=== PATIENT | male | born 1950 | race Caucasian/White ===

== ENCOUNTER 2016-04-12 22:45 | Observation (INO) | payer OTHER ==
[~2016-04-12] VITALS: Ht 182.9 cm; Wt 126.8 kg
--- NOTE | 2016-04-12 23:46 | DIAGNOSTIC IMAGING REPORT ---
PROCEDURE: CT HEAD WITHOUT CONTRAST INDICATION: Altered mental status, initial encounter TECHNIQUE: Noncontrast axial images with sagittal and coronal reformations. COMPARISON: Head CT 07/01/2014 FINDINGS: Mild motion artifacts. Mild cortical atrophy and minor white matter chronic ischemic changes. Normal ventricular system. No acute CVA, hemorrhage, mass or midline shift. Mastoids and visualized sinuses are clear. IMPRESSION: 1. No acute intracranial abnormality 2. Mild cortical atrophy with minor white matter chronic ischemic changes 3. Findings discussed with Dr. Laguna at 11:[address] Time
--- NOTE | 2016-04-12 23:46 | DIAGNOSTIC IMAGING REPORT ---
PROCEDURE: CT HEAD WITHOUT CONTRAST INDICATION: Altered mental status, initial encounter TECHNIQUE: Noncontrast axial images with sagittal and coronal reformations. COMPARISON: Head CT 07/01/2014 FINDINGS: Mild motion artifacts. Mild cortical atrophy and minor white matter chronic ischemic changes. Normal ventricular system. No acute CVA, hemorrhage, mass or midline shift. Mastoids and visualized sinuses are clear. IMPRESSION: 1. No acute intracranial abnormality 2. Mild cortical atrophy with minor white matter chronic ischemic changes 3. Findings discussed with Dr. Laguna at 11:16 p.m.[facility] Time
--- NOTE | 2016-04-13 00:49 | ED ORDER SUMMARY ---
..... Patient: MARIO GIRARD OrderSheet [facility] VisitID: [id number] [place] [address] 65y, M Registration Date/Time: 04/12/2016 ORDER SHEET Weight: 126 kg (measured) Allergies: Possible Shellfish GENERAL ORDERS: CT Head wo Cont Urgent (23:10 04/12/2016 OSnell per protocol) (23:16 RFay) Chest 1V Urgent (23:12 04/12/2016 Crista YUEN) (Ack 23:24 OSnell) (23:50 RFay) Business Risk Analyst (Continuous) (23:12 04/12/2016 Crista YUEN) (23:20 ABugansky R.N.) (Ack 23:23 OSnell) (23:23 OSnell) Cardiac Panel Stat (23:13 04/12/2016 Crista YUEN) (23:20 ABugansky R.N.) (Ack 23:24 OSnell) BNP Urgent (23:13 04/12/2016 Crista YUEN) (23:20 ABugansky R.N.) (Ack 23:23 OSnell) UA-Culture if indicated Urgent (23:13 04/12/2016 Crista YUEN) (Ack 23:23 OSnell) PT with INR Urgent (23:13 04/12/2016 Crista YUEN) (23:20 ABugansky R.N.) (Ack 23:23 OSnell) Urine Drug Screen Urgent (23:13 04/12/2016 Crista YUEN) (Ack 23:24 OSnell) Ethyl Alcohol Urgent (23:13 04/12/2016 Crista YUEN) (23:20 ABugansky R.N.) (Ack 23:24 OSnell) TSH Urgent (23:13 04/12/2016 Crista YUEN) (23:20 ABugansky R.N.) (Ack 23:24 OSnell) Oxygen (2 L/min) (NC) (23:13 04/12/2016 Crista YUEN) (23:20 ABugansky R.N.) (Ack 23:23 OSnell) (23:23 OSnell) Pulse oximeter (23:13 04/12/2016 Crista YUEN) (23:20 ABugansky R.NYoan) (Ack 23:23 Tona) (23:23 Tona) EKG - ER Stat (23:13 04/12/2016 Crista YUEN) (23:20 Felton Salcedo) (23:23 Tona) MEDICATION ORDERS: Aspirin PO 325 mg (Do not crush or chew, NOW) (23:12 04/12/2016 Crista YUEN) (23:27 Felton Milan.Ana.) IV FLUIDS: IV NS : initial bolus 1000 mL (1000 mL/hr), then none - (NOW) (23:12 04/12/2016 Crista YUEN) (23:27 Felton R.N.) Labetalol IV 10 mg (HIGH ALERT MEDICATION, NOW) (23:13 04/12/2016 Crista YUEN) (23:27 Felton R.N.) ORDER SHEET NOTES: [Electronically signed by Alicia Hua R.N. (01:54 04/13/2016)] [Electronically signed by Keira Laguna MD (08:52 04/17/2016)] [Electronically locked/signed by Alicia Hua R.N. (01:54 04/13/2016)]
--- NOTE | 2016-04-13 00:49 | ED NURSING NOTES ---
Clinical Report - Nurses [facility] [address] [place] [address] 04/12/2016 22:50 Patient: MARIO GIRARD TRIAGE Triage time 22:56 Apr 12 2016. Acuity: LEVEL 2. Chief Complaint: IMPAIRED SPEECH. 23:01 04/12/16. Alert. No acute distress. SEPSIS SCREEN: Sepsis Screen. Negative (no infection suspected/documented). WYATT COMA SCORE: [place] Coma Scale: 15- eyes open spontaneously (4); best verbal response- oriented x 4 (5); best motor response- obeys commands (6). --23:01 Alicia Hua R.N. 22:56 04/12/16. BP: 196/79. HR: 105. RR: 18. O2 saturation: 90% on room air. Temp: 98.2 F. --23:01 Alicia Hua R.N. Weight: 126 kg measured. Height/Length: 72 inches Per Patient. BMI: 37.7. --23:01 Alicia Hua R.N. Medications Amitriptyline HCl 25mg, daily (HS). Testim gel. Voltaren-XR Oral. --22:59 Alicia Hua R.N. Medication/allergy information source: the patient. --23:01 Alicia Hua R.N. Allergies Possible Shellfish. --22:59 lAicia Hua R.N. History Arrived by private vehicle. Historian: patient and family. Accompanied by family. This started just prior to arrival. Patient was last known well (2129). Onset. (2129). ( 2129 tonight pt became confused didn't remember the ride home and having difficulty remembering date and no injury. pt has no facial drooping and some difficulty with speech). He has had altered mental status and difficulty with speech. Treatment DIRECTOR ELECTRICAL ENGINEERING: None. SOCIAL HX: Former smoker. No alcohol use or drug use. FALL RISK ASSESSMENT: Fall risk assessment completed. No fall risk identified. NUTRITIONAL RISK ASSESSMENT: The nutritional risk assessment revealed no deficiencies. FUNCTIONAL ASSESSMENT: Functional assessment: no impairments noted. LEARNING NEEDS ASSESSMENT: The learning needs assessment revealed no barriers. SKIN INTEGRITY ASSESSMENT: Skin integrity risk assessment completed. No skin integrity risk identified. --23: Alicia Hua R.N. PROBLEMS: Pneumothorax. Rib Fracture. Concussion. Abrasion(s). Contusion. Fall. Upper Extremity Fracture. Clavicle Fracture. Tetanus Status. Arrhythmia. Dyspnea. Pneumonia. Immunizations. Insomnia. Joint pain. --:59 Alicia Hua R.N. ADDITIONAL SURGERIES: Knee Surgery. Right shoulder surgery. --:59 Alicia Hua R.N. The following entry was struck by Keira Laguna MD, 23:14 Reason - duplicate <<STRICKEN ENTRY-- Shoulder Surgery. --23:13 Keira Laguna MD --END STRIKE>>. Interventions ID band on patient. To treatment room. --23: Alicia Hua R.N. PHYSICAL ASSESSMENT 23:03 04/12/16. Ambulatory to room. Patient gowned. GENERAL / NEURO / PSYCH: Awake. Alert. Appears in no acute distress. [place] Coma Scale: 15- eyes open spontaneously (4); best verbal response- oriented x 4 (5); best motor response- obeys commands (6). Altered mental status: confused, forgetful and disoriented to time. Slurred speech (difficulty speaking). Mood/affect normal. Moves all extremities equally. NIH Stroke Scale: score 1. Level of Consciousness: alert (0). LOC Questions: one (1). LOC Commands: both (0). Best gaze: normal (0). Visual field loss: none (0). Facial palsy: normal (0). Motor arm: no drift right arm (0) and no drift left arm (0). Motor leg: no drift right leg (0) and no drift left leg (0). Limb ataxia: none (0). Sensory loss: none (0). Aphasia: none (0). Dysarthria: normal (0). Extinction and inattention: none (0). HEENT: No facial asymmetry noted. Pupils equal, round and reactive to light. EOM intact. Pharynx within normal limits. RESPIRATORY: Breath sounds within normal limits. Respirations not labored. CVS: Normal sinus rhythm noted. Capillary refill less than 2 seconds. SKIN: Skin is intact, warm and dry. --23:03 Alicia Hua R.N. NURSING PROGRESS NOTES 23:04 04/12/16. The plan of care for this patient has been created. Monitoring of patient in place. Patient gowned. Head of bed elevated. Reassurance given. ( pt to ct and bs 93). Two patient identifiers checked. Call light placed in reach. Side rails up x 2. Bed placed in lowest position. Brakes of bed on. Patient ready for evaluation- ED physician notified. --23:04 Alicia Hua R.N. 23:17 04/12/2016 Site #1 started via IV in the left antecubital space with an 20g angiocath, with aseptic technique and good blood return; two attempts. Blood drawn: rainbow set. Labeled in the presence of the patient and sent to the lab. Saline lock flushed with 5 mL saline. --23:17 Alicia Hua R.N. 23:18 04/12/16. The patient is calm and resting quietly. ( pt able to answer all questions at this time). GENERAL / NEURO / PSYCH: Alert. Oriented X 4. Affect appears normal. HEENT: Pupils equal, round and reactive to light. RESPIRATORY: No respiratory distress. SKIN: Skin is warm and dry. --23:18 Alicia uHa R.N. 23:10. ( Accu Check 93 performed by tech shown to nurse and phys.). --23:22 Rica Ramey 23:27 04/12/2016 Started bag #1 1000 mL IV Fluids IV NS (Saline); at 1000 mL/hr over 1 hour(s) via site #1 --23:27 Alicia Hua R.N. 23:27 04/12/2016 Aspirin PO Tablets 325 mg given. Allergies verified and confirmed 5 rights. --23:27 Alicia Hua R.N. 23:27 04/12/2016 Labetalol IVP 10 mg given over 5 minute(s) via site #1. Allergies verified and confirmed 5 rights. IV patency established. IV site checked: no pain, redness, or swelling. IV flushed thoroughly pre- and post-medication administration. IVP given by RN. --23:27 Alicia Hua R.N. 23:34 04/12/16. The patient reports no complaints and he is calm and resting quietly. Overall patient status is improved- he states feels better. ( pt is unable to state who the next president is but is able to remember the month not the year which is an improvement. on arrival pt unable to remember month now can recall month). --23:34 Alicia Hua R.N. 23:31 04/12/16. BP: 173/83. HR: 101. RR: 18. O2 saturation: 96% on nasal cannula at 2 liters/minute. --23:34 Alicia Hua R.N. 00:05 04/13/16. The patient reports no complaints and he is calm and resting quietly. --00:05 Alicia Hua R.N. 00:03 04/13/16. BP: 158/91. HR: 88. RR: 18. O2 saturation: 98% on room air. Pain level now: 0/10. --00:05 Alicia Hua R.N. 00:30 04/13/16. The patient is calm and resting quietly. --00:30 Alicia Hua R.N. 00:29 04/13/16. BP: 151/73. HR: 85. RR: 18. O2 saturation: 100% on room air. --00:30 Alicia Hua R.N. 01:04/13/16. The patient reports no complaints and he is calm and resting quietly. Overall patient status is the same- he states feels the same. --01:06 Alicia Hua R.N. 01:04/13/16. BP: 154/87. HR: 85. RR: 18. O2 saturation: 95% on nasal cannula at 2 liters/minute. --01:06 Alicia Hua R.N. DISPOSITION / DISCHARGE 01:45 04/13/2016 IV Fluids IV NS Discontinued: bag #1 completed upon admission. Total amount infused: 1000ml mL. IV patency established. IV site checked: no pain, redness, or swelling. IV flushed thoroughly. --01:45 Alicia Hua R.N. Disposition: observation in Acute Care. Transported via stretcher by [facility] with IV. Report was given to a nurse via a phone call. Report included patient's care, treatment, medications, reviewed medication reconcilliation, and condition (including any recent changes or anticipated changes). All questions were answered. Report was acknowledged and care was transferred. (shanon langston). Patient's personal items; items were placed in belongings bag, given to the patient and transported with the patient. --01:46 Alicia Hua R.N. 01:05 04/13/16. BP: 154/87. HR: 85. RR: 18. O2 saturation: 95% on nasal cannula at 2 liters/minute. 00:29 04/13/16. BP: 151/73. HR: 85. RR: 18. O2 saturation: 100% on room air. 00:03 04/13/16. BP: 158/91. HR: 88. RR: 18. O2 saturation: 98% on room air. Pain level now: 0/10. 23:31 04/12/16. BP: 173/83. HR: 101. RR: 18. O2 saturation: 96% on nasal cannula at 2 liters/minute. 22:56 04/12/16. BP: 196/79. HR: 105. RR: 18. O2 saturation: 90% on room air. Temp: 98.2 F. --01:46 Alicia Hua R.N. Departure time: 01:54 Apr 13 2016. --01:54 Alicia Hua R.N. Locked/Released at 04/13/2016 1:54 by Alicia Hua R.N.
--- NOTE | 2016-04-13 00:49 | ED CLINICAL REPORT ---
Clinical Report - Physicians/Mid Levels [facility] [address] [place] [address] 04/12/2016 22:50 Patient: MARIO GIRARD Time Seen: 2255. Arrived- By private vehicle. Historian- patient and family. HISTORY OF PRESENT ILLNESS Chief Complaint: memory loss. This started about 1 hour ago and is still present. No weakness, numbness, tingling, visual disturbance or impaired swallowing. No recent fall. No impaired speech (Acute, short-term memory loss.). No difficulty walking. At its maximum deficit described as moderate. When seen in the E.D.,deficit described as moderate. No dizziness, altered mental status, seizure or blackouts. Usually is alert and oriented X3 and has normal mobility. Similar symptoms previously: None. Recent medical care: The patient was seen recently at another facility in a clinic. ( Dr. Neri is PCP.). REVIEW OF SYSTEMS No fever, headache, head injury, chest pain or cough. No sputum production, sore throat, abdominal pain, nausea or diarrhea. No black stools, difficulty with urination, skin rash, enlarged lymph nodes or joint pain. No vomiting, bloody stools or back pain. The patient has had difficulty breathing (since having pneumonia 2 weeks ago). All systems otherwise negative, except as recorded above. PAST HISTORY Problems: Pneumothorax. Rib Fracture. Concussion. Clavicle Fracture. Tetanus Status. Arrhythmia. Dyspnea. Immunizations. Insomnia. Joint pain. Additional Surgeries: Knee Surgery. Right shoulder surgery. Medications: Amitriptyline HCl 25mg, daily (HS). Testim gel. Voltaren-XR Oral. Allergies: Possible Shellfish. SOCIAL HISTORY Former smoker. No alcohol use or drug use. ADDITIONAL NOTES The nursing notes have been reviewed. PHYSICAL EXAM Vital Signs: 04/12/2016 22:56 BP: 196/79. HR: 105. RR: 18. O2 saturation: 90%. Temp: 98.2 F. Have been reviewed. Appearance: Alert. No acute distress. Head: Head atraumatic. Eyes: Pupils equal, round and reactive to light. ENT: Normal ENT inspection. Airway intact. Neck: Normal inspection. CVS: Normal heart rate and rhythm. Heart sounds normal. Pulses normal. Respiratory: No respiratory distress. Breath sounds normal. Abdomen: Soft and nontender. Back: Normal inspection. Skin: Skin warm and dry. Normal skin color. No rash. Normal skin turgor. Extremities: Extremities exhibit normal ROM. No lower extremity edema. Neuro: Alert. Mood/affect normal. Speech normal. Cranial nerves normal (as tested). No cerebellar findings. No motor deficit. No sensory deficit. LABS, X-RAYS, AND EKG CT Head: Normal study. No acute changes. No bony abnormalities, no hemorrhage, no intracranial mass, no midline shift and no hydrocephalus. No atrophy. Head CT performed without contrast. The study was independently viewed by me, interpreted by the radiologist and contemporaneously by me and discussed with the radiologist. Prior studies were not available for comparison. Laboratory Tests: CBC w Diff: (SUE: 04/12/2016 23:16) ( [facility] 04/12/2016 23:29) Final results Test Result Flag Units (Reference) WHITE BLOOD COUNT 8.1 K/uL (4.5-11.5) RED BLOOD COUNT 5.23 M/uL (4.50-5.90) HEMOGLOBIN 17.8 H gm/dL (13.5-17.5) HEMATOCRIT 52.4 % (41.0-53.0) MEAN CELL VOLUME 100 fL (80-100) MEAN CORPUSCULAR HGB 34 pg (26-34) MEAN CORPUSCULAR HGB CONC 34 g/dL (31-37) RED CELL DISTRIBUTION WIDTH 13.3 % (11.6-14.8) PLATELET COUNT 136 L K/uL (150-400) NEUTROPHIL % 66.3 % (50-75) LYMPH % 23.6 L % (25-40) MONO % 5.5 % (3-14) EOSINOPHIL % 3.3 % (0-4) BASOPHIL % 1.3 % (0-2) PT with INR: (SUE: 04/12/2016 23:16) ( [facility] 04/12/2016 23:46) Final results Test Result Flag Units (Reference) INR 1.0 (0.8-1.2) Low Intensity Therapy: INR 1.5-2.0 PT range 18.5-23.1Mod.Intensity Therapy: INR 2.0-3.0 PT range 23.1-31.5High Intensity Therapy: INR 2.5-3.5 PT range 27.4-35.5High Intensity Therapy 2: INR 3.0-4.0 PT range 31.5-39.3 BNP: (SUE: 04/12/2016 23:16) ( [facility] 04/12/2016 23:50) Final results Test Result Flag Units (Reference) B-TYPE NATRIURETIC PEPTIDE < 5.0 L pg/ml (5-100) Ethyl Alcohol: (SUE: 04/12/2016 23:16) ( [facility] 04/13/2016 00:00) Final results Test Result Flag Units (Reference) ETHYL ALCOHOL <3 L mg/dL (3-10) THYROID STIMULATING HORMONE 3.032 uIU/mL (0.30-3.74) CHEM 13 PANEL: (SUE: 04/12/2016 23:16) ( [facility] 04/13/2016 00:03) Final results Test Result Flag Units (Reference) GLUCOSE 111 H mg/dL (70-110) BUN 21 H mg/dL (7-18) CREATININE 1.3 mg/dL (0.6-1.3) Estimated GFR 58.52 mL/min Estimated GFR- >60 mL/min Note: Persistent reduction over 3 months in eGFR<60 mL/min/1.73 m2 defines CKD. Patients with eGFR values>=60 mL/min/1.73 m2 may also have CKD if evidence ofpersistent proteinuria. Additional information may be foundat www.kidney.org. SODIUM 140 mmol/L (136-145) POTASSIUM 4.7 mmol/L (3.5-5.1) CHLORIDE 105 mmol/L (98-107) CARBON DIOXIDE 26 mmol/L (21-32) CALCIUM 9.1 mg/dL (8.5-10.1) TOTAL PROTEIN 7.5 g/dL (6.4-8.2) ALBUMIN 3.9 g/dL (3.3-5.0) BILIRUBIN, TOTAL 0.6 mg/dL (0.0-1.0) ALKALINE PHOSPHATASE 141 H U/L (46-116) AST (SGOT) 52 H U/L (15-37) ALT (SGPT) 47 U/L (12-78) MAGNESIUM 2.0 mg/dL (1.8-2.4) CPK 436 H U/L (24-260) TROPONIN I 0.05 ng/mL (0.00-1.5) TROPONIN REFERENCE RANGE:<0.1 NEGATIVE0.1-1.5 INDETERMINANT>1.5 POSITIVE CK-MB 10.6 H ng/mL (0.5-3.2) %CKMB 2.4 % (0.0-4.0) . Pulse Oximetry: 04/12/2016 22:56 O2 saturation: 90%. (FIO2 - room air). Interpretation: normal. PROGRESS AND PROCEDURES Course of Care: PT was worked up for his acute, short-term memory loss, with progressive amnesia. Work-up was negative at this time, including a normal head CT. I did d/w pt and that at this time, I feel the best plan is to observe the pt in the hospital for possible stroke, with consideration of MRI, echo and carotid studies tomorrow. Patient and spouse counseled in person several times regarding the patient's condition, test results, diagnosis and need for additional testing and admission. Concerns were addressed. Old medical records reviewed. Disposition: Admitted to Acute Care. Condition: stable and serious. CLINICAL IMPRESSION Acute memory loss with progressive amnesia. (Electronically signed by Keira Laguna MD 04/17/2016 8:52)
--- NOTE | 2016-04-13 00:49 | ED ORDER SUMMARY ---
..... Patient: MARIO GIRARD OrderSheet [facility] VisitID: [id number] [place] [address] 65y, M Registration Date/Time: 04/12/2016 ORDER SHEET Weight: 126 kg (measured) Allergies: Possible Shellfish GENERAL ORDERS: CT Head wo Cont Urgent (23:10 04/12/2016 OSnell per protocol) (23:16 RFay) Chest 1V Urgent (23:12 04/12/2016 Crista YUEN) (Ack 23:24 OSnell) (23:50 RFay) Japanese Interpreter (Continuous) (23:12 04/12/2016 Crista YUEN) (23:20 ABugansky R.N.) (Ack 23:23 OSnell) (23:23 OSnell) Cardiac Panel Stat (23:13 04/12/2016 Crista YUEN) (23:20 ABugansky R.N.) (Ack 23:24 OSnell) BNP Urgent (23:13 04/12/2016 Crista YUEN) (23:20 ABugansky R.N.) (Ack 23:23 OSnell) UA-Culture if indicated Urgent (23:13 04/12/2016 Crista YUEN) (Ack 23:23 OSnell) PT with INR Urgent (23:13 04/12/2016 Crista YUEN) (23:20 ABugansky R.N.) (Ack 23:23 OSnell) Urine Drug Screen Urgent (23:13 04/12/2016 Crista YUEN) (Ack 23:24 OSnell) Ethyl Alcohol Urgent (23:13 04/12/2016 Crista YUEN) (23:20 ABugansky R.N.) (Ack 23:24 OSnell) TSH Urgent (23:13 04/12/2016 Crista YUEN) (23:20 ABugansky R.N.) (Ack 23:24 OSnell) Oxygen (2 L/min) (NC) (23:13 04/12/2016 Crista YUEN) (23:20 ABugansky R.N.) (Ack 23:23 OSnell) (23:23 OSnell) Pulse oximeter (23:13 04/12/2016 Crista YUEN) (23:20 ABugansky R.NYoan) (Ack 23:23 Tona) (23:23 Tona) EKG - ER Stat (23:13 04/12/2016 Crista YUEN) (23:20 Felton Salcedo) (23:23 Tona) MEDICATION ORDERS: Aspirin PO 325 mg (Do not crush or chew, NOW) (23:12 04/12/2016 Crista YUEN) (23:27 Felton Milan.Ana.) IV FLUIDS: IV NS : initial bolus 1000 mL (1000 mL/hr), then none - (NOW) (23:12 04/12/2016 Crista YUEN) (23:27 Felton R.N.) Labetalol IV 10 mg (HIGH ALERT MEDICATION, NOW) (23:13 04/12/2016 Crista YUEN) (23:27 Felton R.N.) ORDER SHEET NOTES: [Electronically signed by Alicia Hua R.N. (01:54 04/13/2016)] [Electronically signed by Keira Laguna MD (08:52 04/17/2016)] [Electronically locked/signed by Alicia Hua R.N. (01:54 04/13/2016)]
--- NOTE | 2016-04-13 00:49 | ED NURSING NOTES ---
Clinical Report - Nurses [facility] [address] [place] [address] 04/12/2016 22:50 Patient: MARIO GIRARD TRIAGE Triage time 22:56 Apr 12 2016. Acuity: LEVEL 2. Chief Complaint: IMPAIRED SPEECH. 23:01 04/12/16. Alert. No acute distress. SEPSIS SCREEN: Sepsis Screen. Negative (no infection suspected/documented). WYATT COMA SCORE: Marshall Coma Scale: 15- eyes open spontaneously (4); best verbal response- oriented x 4 (5); best motor response- obeys commands (6). --23:01 Alicia Hua R.N. 22:56 04/12/16. BP: 196/79. HR: 105. RR: 18. O2 saturation: 90% on room air. Temp: 98.2 F. --23:01 Alicia Hua R.N. Weight: 126 kg measured. Height/Length: 72 inches Per Patient. BMI: 37.7. --23:01 Alicia Hua R.N. Medications Amitriptyline HCl 25mg, daily (HS). Testim gel. Voltaren-XR Oral. --22:59 Alicia Hua R.N. Medication/allergy information source: the patient. --23:01 Alicia Hua R.N. Allergies Possible Shellfish. --22:59 Alicia Hua R.N. History Arrived by private vehicle. Historian: patient and family. Accompanied by family. This started just prior to arrival. Patient was last known well (2129). Onset. (2129). ( 2129 tonight pt became confused didn't remember the ride home and having difficulty remembering date and no injury. pt has no facial drooping and some difficulty with speech). He has had altered mental status and difficulty with speech. Treatment COMMERCIAL PROPERTY MANAGER: None. SOCIAL HX: Former smoker. No alcohol use or drug use. FALL RISK ASSESSMENT: Fall risk assessment completed. No fall risk identified. NUTRITIONAL RISK ASSESSMENT: The nutritional risk assessment revealed no deficiencies. FUNCTIONAL ASSESSMENT: Functional assessment: no impairments noted. LEARNING NEEDS ASSESSMENT: The learning needs assessment revealed no barriers. SKIN INTEGRITY ASSESSMENT: Skin integrity risk assessment completed. No skin integrity risk identified. --23: Alicia Hua R.N. PROBLEMS: Pneumothorax. Rib Fracture. Concussion. Abrasion(s). Contusion. Fall. Upper Extremity Fracture. Clavicle Fracture. Tetanus Status. Arrhythmia. Dyspnea. Pneumonia. Immunizations. Insomnia. Joint pain. --:59 Alicia Hua R.N. ADDITIONAL SURGERIES: Knee Surgery. Right shoulder surgery. --:59 Alicia Hua R.N. The following entry was struck by Keira Laguna MD, 23:14 Reason - duplicate <<STRICKEN ENTRY-- Shoulder Surgery. --23:13 Keira Laguna MD --END STRIKE>>. Interventions ID band on patient. To treatment room. --23: Alicia Hua R.N. PHYSICAL ASSESSMENT 23:03 04/12/16. Ambulatory to room. Patient gowned. GENERAL / NEURO / PSYCH: Awake. Alert. Appears in no acute distress. Marshall Coma Scale: 15- eyes open spontaneously (4); best verbal response- oriented x 4 (5); best motor response- obeys commands (6). Altered mental status: confused, forgetful and disoriented to time. Slurred speech (difficulty speaking). Mood/affect normal. Moves all extremities equally. NIH Stroke Scale: score 1. Level of Consciousness: alert (0). LOC Questions: one (1). LOC Commands: both (0). Best gaze: normal (0). Visual field loss: none (0). Facial palsy: normal (0). Motor arm: no drift right arm (0) and no drift left arm (0). Motor leg: no drift right leg (0) and no drift left leg (0). Limb ataxia: none (0). Sensory loss: none (0). Aphasia: none (0). Dysarthria: normal (0). Extinction and inattention: none (0). HEENT: No facial asymmetry noted. Pupils equal, round and reactive to light. EOM intact. Pharynx within normal limits. RESPIRATORY: Breath sounds within normal limits. Respirations not labored. CVS: Normal sinus rhythm noted. Capillary refill less than 2 seconds. SKIN: Skin is intact, warm and dry. --23:03 Alicia Hua R.N. NURSING PROGRESS NOTES 23:04 04/12/16. The plan of care for this patient has been created. Monitoring of patient in place. Patient gowned. Head of bed elevated. Reassurance given. ( pt to ct and bs 93). Two patient identifiers checked. Call light placed in reach. Side rails up x 2. Bed placed in lowest position. Brakes of bed on. Patient ready for evaluation- ED physician notified. --23:04 Alicia Hua R.N. 23:17 04/12/2016 Site #1 started via IV in the left antecubital space with an 20g angiocath, with aseptic technique and good blood return; two attempts. Blood drawn: rainbow set. Labeled in the presence of the patient and sent to the lab. Saline lock flushed with 5 mL saline. --23:17 Alicia Hua R.N. 23:18 04/12/16. The patient is calm and resting quietly. ( pt able to answer all questions at this time). GENERAL / NEURO / PSYCH: Alert. Oriented X 4. Affect appears normal. HEENT: Pupils equal, round and reactive to light. RESPIRATORY: No respiratory distress. SKIN: Skin is warm and dry. --23:18 Alicia Hua R.N. 23:10. ( Accu Check 93 performed by tech shown to nurse and phys.). --23:22 Rica Ramey 23:27 04/12/2016 Started bag #1 1000 mL IV Fluids IV NS (Saline); at 1000 mL/hr over 1 hour(s) via site #1 --23:27 Alicia Hua R.N. 23:27 04/12/2016 Aspirin PO Tablets 325 mg given. Allergies verified and confirmed 5 rights. --23:27 Alicia Hua R.N. 23:27 04/12/2016 Labetalol IVP 10 mg given over 5 minute(s) via site #1. Allergies verified and confirmed 5 rights. IV patency established. IV site checked: no pain, redness, or swelling. IV flushed thoroughly pre- and post-medication administration. IVP given by RN. --23:27 Alicia Hua R.N. 23:34 04/12/16. The patient reports no complaints and he is calm and resting quietly. Overall patient status is improved- he states feels better. ( pt is unable to state who the next president is but is able to remember the month not the year which is an improvement. on arrival pt unable to remember month now can recall month). --23:34 Alicia Hua R.N. 23:31 04/12/16. BP: 173/83. HR: 101. RR: 18. O2 saturation: 96% on nasal cannula at 2 liters/minute. --23:34 Alicia Hua R.N. 00:05 04/13/16. The patient reports no complaints and he is calm and resting quietly. --00:05 Alicia Hua R.N. 00:03 04/13/16. BP: 158/91. HR: 88. RR: 18. O2 saturation: 98% on room air. Pain level now: 0/10. --00:05 Alicia Hua R.N. 00:30 04/13/16. The patient is calm and resting quietly. --00:30 Alicia Hua R.N. 00:29 04/13/16. BP: 151/73. HR: 85. RR: 18. O2 saturation: 100% on room air. --00:30 Alicia Hua R.N. 01:04/13/16. The patient reports no complaints and he is calm and resting quietly. Overall patient status is the same- he states feels the same. --01:06 Alicia Hua R.N. 01:04/13/16. BP: 154/87. HR: 85. RR: 18. O2 saturation: 95% on nasal cannula at 2 liters/minute. --01:06 Alicia Hua R.N. DISPOSITION / DISCHARGE 01:45 04/13/2016 IV Fluids IV NS Discontinued: bag #1 completed upon admission. Total amount infused: 1000ml mL. IV patency established. IV site checked: no pain, redness, or swelling. IV flushed thoroughly. --01:45 Alicia Hua R.N. Disposition: observation in Acute Care. Transported via stretcher by [facility] with IV. Report was given to a nurse via a phone call. Report included patient's care, treatment, medications, reviewed medication reconcilliation, and condition (including any recent changes or anticipated changes). All questions were answered. Report was acknowledged and care was transferred. (shanon langston). Patient's personal items; items were placed in belongings bag, given to the patient and transported with the patient. --01:46 Alicia Hua R.N. 01:05 04/13/16. BP: 154/87. HR: 85. RR: 18. O2 saturation: 95% on nasal cannula at 2 liters/minute. 00:29 04/13/16. BP: 151/73. HR: 85. RR: 18. O2 saturation: 100% on room air. 00:03 04/13/16. BP: 158/91. HR: 88. RR: 18. O2 saturation: 98% on room air. Pain level now: 0/10. 23:31 04/12/16. BP: 173/83. HR: 101. RR: 18. O2 saturation: 96% on nasal cannula at 2 liters/minute. 22:56 04/12/16. BP: 196/79. HR: 105. RR: 18. O2 saturation: 90% on room air. Temp: 98.2 F. --01:46 Alicia Hua R.N. Departure time: 01:54 Apr 13 2016. --01:54 Alicia Hua R.N. Locked/Released at 04/13/2016 1:54 by Alicia Hua R.N.
[2016-04-13 02:26] VITALS: BP 169/93
--- NOTE | 2016-04-13 02:59 | HISTORY AND PHYSICAL ---
ADMITTED: 04/13/2016 CHIEF COMPLAINT: 1. Memory loss HISTORY OF PRESENT ILLNESS: A 65-year-old male in good health until a few hours prior to admission when he was noted by his to have sudden onset of memory loss at home. She and the patient had been babysitting the grandchildren. They drove home following babysitting, which was uneventful. The patient was driving and apparently drove without difficulty, but on arriving home, he seemed confused about where things were at home and did not recall putting things where they had been or parking vehicles where they had been. He also did not remember driving home from babysitting, and on further questioning, he also seemed to be confused about the date and did not recall some other events, such as recent presidential election. She therefore drove him to the emergency department for evaluation. She denies prior memory problems for him, except once when he was admitted with sepsis and was very ill with high fever and became very confused, that was some years ago. MEDICAL/SURGICAL HISTORY: Shoulder surgery in 2004. Knee surgery, date unknown. Back surgery, date unknown, for spinal stenosis. Past hospitalizations include hospitalization for sepsis in 2004 and for a fall from a roof with broken ribs and punctured lung in 2014. Past medical history is remarkable for pneumonia approximately 6 weeks prior to admission, blood infection in 2004, fall in 2014 with rib fractures. He also had a concussion at the time of the fall. He has had chronic joint pain, chronic back pain with spinal stenosis and paresthesias in his feet, worked up by Neurology, initially suspected to be due to diabetes, but diabetes has been ruled out multiple times. Preventive care: Colonoscopy last done approximately 5 years ago. The patient has had recent vision and dental testing and has yearly physicals with Dr. Neri. 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 Preventive care also includes pneumonia and flu vaccines done this fall. MEDICATIONS: 1. Amitriptyline 25 mg p.o. at bedtime. 2. Losartan 50 mg p.o. daily. 3. Vicodin ------- 1 p.o. 3-4 times per day. 4. Cephalexin 500 mg p.o. q.i.d. 5. Diclofenac 75 mg p.o. daily (the patient does not recall any of his medications thus history is obtained from his ). ALLERGIES: 1. SHELLFISH. 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 Smoking: None, quit some years ago, after approximately 20 years of smoking, now chews tobacco. Alcohol: None x30 years. Drug use: None. Caffeine: Approximately 5 cups of coffee per day. FAMILY HISTORY: Father at age 65 of a heart problem shortly after a valve surgery. Mother at age 93. One sibling is a urban anthropologist and had lung disease. Three children are healthy. REVIEW OF SYSTEMS: Fatigue x1 year, worse in the last 3 months according to his , the patient does not recall this. Chronic back and joint pain for which he takes pain medications and anti-inflammatories. Cough with shortness of breath at times, including recently a history of pneumonia 6 months ago with wheezing and phlegm production. The patient also gives positive history for hypertension, pain in muscles with walking, shortness of breath with exertion, joint stiffness, joint pain and tingling sensation. Otherwise, review of systems for general, skin, eyes, ears, nose, mouth, throat, lungs, heart circulation, urinary, stomach, intestines, musculoskeletal, neurologic, lymphatic, endocrine, psychological and genital is negative, with the exception of the patient also adding that he does have loss of interest in enjoyable events and does have difficulty with erections. PHYSICAL EXAMINATION: VITAL SIGNS: Blood pressure 196/79, heart rate 105, respirations 18, SaO2 90% on room air, temperature 98.2. HEENT: Clear. NECK: Supple without adenopathy or thyromegaly. CHEST: Clear to auscultation and percussion. HEART: Regular rate and rhythm without murmur. ABDOMEN: Positive bowel sounds. Soft, nontender, without hepatosplenomegaly or masses. BACK: Straight without CVA tenderness. EXTREMITIES: Without cyanosis, clubbing, or edema. SKIN: Reveals infection of the right great toe with some purulence at the toe nail margin and some erythema proximal to the toenail. This is nontender at this time. The patient reports it was tender before starting antibiotics. reports he has been on antibiotics for 2 days (cephalexin) and that it looks considerably better than it did. NEUROLOGIC: Reveals the patient is alert and oriented to self and to the month, but not the year or the date. Mini mental status test was done. The patient scored 25/30 points. He was not able to remember any of 3 named objects after a period of distraction , although he was able to repeat them immediately. He was oriented to place. GENITAL AND RECTAL: Deferred. LAB/IMAGING: Sodium 140, potassium 4.7, chloride 105, bicarbonate 26. Total bilirubin 0.6, alkaline phosphatase 141. AST 52, ALT 47, magnesium 2.0. CPK 436, CK-MB 10.6. Ethyl alcohol less than 3, thyroid stimulating hormone 3.032. WBC 8.1, hemoglobin 17.8 , hematocrit 52.4, platelet count 136. INR 1.0. BNP less than 5, glucose 111, BUN 21, creatinine 1.3. Ethyl alcohol less than 3. TSH 3.032. Magnesium 2.0. CPK 436, troponin 0.05, CK-MB 10.6%, CK-MB 2.4. One-view chest x-ray was obtained, which shows some patchiness. Two view films will be obtained to rule out infiltrate. CT of the head was obtained, which shows no acute change. EKG shows normal sinus rhythm. IMPRESSION: 1. Cerebrovascular accident probable with acute memory loss. Rule out transient global amnesia, rule out infection causing memory loss or medication overdose causing memory loss. 2. Cellulitis, right great toe. 3. Hypertension. 4. Chronic pain, on chronic Vicodin. PLAN: Admit to [facility] for observation. We will obtain an MRI of the head, carotid ultrasound, and repeat chest x-ray, IV antibiotics will be given for cellulitis, and the patient will be monitored off narcotics for any improvement in memory.
--- NOTE | 2016-04-13 03:05 | Progress Note ---
Subjective General CXR shows RML infiltrate. Will add zithromax to previously prescribed cephalosporin for pneumonia. Assessment and Plan Problem List 1. Pneumonia Plan zithromax
--- NOTE | 2016-04-13 03:05 | Progress Note ---
Subjective General CXR shows RML infiltrate. Will add zithromax to previously prescribed cephalosporin for pneumonia. Assessment and Plan Problem List 1. Pneumonia Plan zithromax
[2016-04-13 06:25] VITALS: BP 144/96
--- NOTE | 2016-04-13 07:52 | DIAGNOSTIC IMAGING REPORT ---
PROCEDURE: XR CHEST 1 VIEW INDICATION: SHORTNESS OF BREATH TECHNIQUE: Portable AP view (234 5 hours). COMPARISON: Compared to chest x-ray is dating to 05/06/2008 within the most recent chest x-ray on 07/02/2014. Comparison is also made to CT thorax on 07/01/2014. FINDINGS: There are mild chronic interstitial changes in the lungs. Lungs are otherwise clear. Heart and mediastinum are normal. There are old left rib fractures with mild deformity of the left hemithorax. There is an old ununited midshaft left clavicle fracture. IMPRESSION: 1. Mild chronic interstitial changes compatible with interstitial fibrosis (e.g., UIP, DIP). 2. Multiple old left rib fractures. 3. Old ununited left clavicle fracture.
--- NOTE | 2016-04-13 07:53 | DIAGNOSTIC IMAGING REPORT ---
PROCEDURE: XR CHEST 2 VIEW INDICATION: Shortness of breath. TECHNIQUE: PA and lateral views. COMPARISON: Compared to chest x-ray on 04/12/2016 and prior chest x-ray on 07/02/2014. FINDINGS: There are mild chronic interstitial changes in the lungs. There are multiple old healed left rib fractures with mild deformity of the left hemithorax. Heart and mediastinum are normal. There are old left rib fractures with mild deformity of the left hemithorax, and mild chronic pleural thickening. There is an old ununited left clavicle fracture. There are mild degenerative changes of the thoracic spine. IMPRESSION: 1. Mild chronic interstitial changes of the thorax consistent with interstitial fibrosis (e.g., UIP, DIP, sarcoid). 2. Multiple old left rib fractures. 3. Old ununited mid left clavicle fracture.
--- NOTE | 2016-04-13 10:47 | DIAGNOSTIC IMAGING REPORT ---
PROCEDURE: US BILATERAL CAROTID DOPPLER INDICATION: cva/memory loss TECHNIQUE: Color Doppler duplex imaging of the carotid and vertebral vessels. COMPARISON: None. FINDINGS: Right common carotid artery peak systolic velocity 116 cm/second. Right internal carotid artery peak systolic velocity 91 cm/second. Right external carotid artery peak systolic velocity 131 cm/second. Right ybeqzxxk-oh-hjeewg carotid artery ratio 0.8 Right vertebral artery peak systolic velocity 52 cm/second antegrade. Left common carotid artery peak systolic velocity 95 cm/second. Left internal carotid artery peak systolic velocity 103 cm/second. Left external carotid artery peak systolic velocity 100 cm/second. Left ivhhsvpd-pr-zteewq carotid artery ratio 1.1 Left vertebral artery peak systolic velocity 55 cm/second antegrade. IMPRESSION: 1. Mild atheromatous plaque at the carotid bifurcations. 2. Mild bilateral 5-15% internal carotid artery stenoses. 3. There is a 50-99% right external carotid artery stenosis. Velocity criteria are extrapolated from diameter data as defined by the Society of Radiologists in Ultrasound Consensus Conference, Radiology 2003; 229; 340-346.
--- NOTE | 2016-04-13 10:47 | DIAGNOSTIC IMAGING REPORT ---
PROCEDURE: US BILATERAL CAROTID DOPPLER INDICATION: cva/memory loss TECHNIQUE: Color Doppler duplex imaging of the carotid and vertebral vessels. COMPARISON: None. FINDINGS: Right common carotid artery peak systolic velocity 116 cm/second. Right internal carotid artery peak systolic velocity 91 cm/second. Right external carotid artery peak systolic velocity 131 cm/second. Right cjwqesop-xy-djxavo carotid artery ratio 0.8 Right vertebral artery peak systolic velocity 52 cm/second antegrade. Left common carotid artery peak systolic velocity 95 cm/second. Left internal carotid artery peak systolic velocity 103 cm/second. Left external carotid artery peak systolic velocity 100 cm/second. Left bgieoucs-rd-yvgfru carotid artery ratio 1.1 Left vertebral artery peak systolic velocity 55 cm/second antegrade. IMPRESSION: 1. Mild atheromatous plaque at the carotid bifurcations. 2. Mild bilateral 5-15% internal carotid artery stenoses. 3. There is a 50-99% right external carotid artery stenosis. Velocity criteria are extrapolated from diameter data as defined by the Society of Radiologists in Ultrasound Consensus Conference, Radiology 2003; 229; 340-346.
[2016-04-13 14:32] VITALS: BP 132/77
[2016-04-13 18:29] VITALS: BP 161/89
[2016-04-13 21:37] VITALS: BP 161/92
[2016-04-14 03:06] VITALS: BP 160/80
[2016-04-14 06:34] VITALS: BP 163/89
[2016-04-14 10:31] VITALS: BP 145/89
--- NOTE | 2016-04-14 12:54 | DIAGNOSTIC IMAGING REPORT ---
PROCEDURE: MR BRAIN WITHOUT CONTRAST INDICATION: cva/memory loss TECHNIQUE: Sagittal T1 FLAIR; coronal T2; axial T1 FLAIR, T2-weighted FLAIR, T2 FSE, gradient echo T2, DWI and ADC sequences. COMPARISON: Head CT 04/12/2016 FINDINGS: Mild cortical atrophy and minor white matter chronic ischemic changes. Normal ventricular system. There is no evidence of an acute CVA, hemorrhage, mass or midline shift. Normal orbits. Sinuses and mastoids are clear IMPRESSION: 1. No evidence of an acute CVA 2. Mild atrophy and minor white matter chronic ischemic changes 3. Results discussed with Dr. Nino
[2016-04-14 14:09] VITALS: BP 154/89
[2016-04-14] MEDS ORDERED: DICLOFENAC SODI75 MG PO (14:41)
[2016-04-14] MEDS ORDERED: CEPHALEXIN500 MG PO (14:41)
[2016-04-14] MEDS ORDERED: COZAAR50 MG PO (14:42)
[2016-04-14] MEDS ORDERED: AMITRIPTYLINE H25 MG PO (14:42)
[2016-04-14] MEDS ORDERED: VICODIN EQUIVAL1 TAB PO (14:43)
--- NOTE | 2016-04-14 14:48 | Discharge Summary ---
Discharge Summary Report Admit Date 04/13/16 Discharge Date 04/14/16 Admission Diagnosis 1. Mental status changes-rule out TIA 2. Cellulitis-right great toe 3. Onychomycosis-right great toe 4. Hypertension 5. Chronic pain Discharge Diagnosis 1. Mental status changes-etiology unknown/resolved 2. Chronic pain 3. Onychomycosis-right great toe 4. Hypertension Brief History Please see admission history and physical examination and ER visit note regarding indications for admission. Hospital Course The following problems and their management were noted during the patient's hospitalization: 1. Mental status changes-etiology unknown/resolved The patient presented with findings of a memory loss/mental status changes. These resolved early in the patient's hospital course. There is no associated focal neurological deficits. Evaluation included MRI of the brain which showed no evidence of acute CVA. Chronic white matter ischemic changes were present. Carotid Doppler and ultrasound exam was unremarkable. Head CT was unremarkable. The patient was at his normal baseline state at the time of discharge. He will follow-up as an outpatient for echocardiogram. Patient discharged on aspirin 81 mg by mouth daily. Etiology of his mental status changes remains unclear. Possible med related changes. 2. Chronic pain Patient has a history of chronic pain. This is well-controlled during his hospitalization. He continued on his outpatient medical regimen. 3. Onychomycosis-right great toe Patient noted to have onychomycosis right great toe without associated cellulitis. Outpatient follow-up with PCP for ongoing evaluation and treatment 4. Hypertension Adequate control during his hospital stay. The patient remained on losartan 50 mg by mouth daily at the time of discharge. Low-salt diet. Outpatient follow- up with PCP. General Appearance Alert, Oriented X3, Cooperative, No acute distress Lungs Clear to auscultation, Normal air movement Cardiovascular Regular Rate, Normal S1, Normal S2 Abdomen Normal bowel sounds, Soft, No tenderness Neurological Normal gait, Normal speech, Strength at 5/5 X4 ext, Normal tone, Cranial nerves 3-12 NL Psych/Mental Status Mental status NL, Mood NL Lab/Imaging Laboratory Tests 04/14 0625 Chemistry Plasma Sodium (136 - 145 mmol/L) 141 Plasma Potassium (3.5 - 5.1 mmol/L) 4.1 Plasma Chloride (98 - 107 mmol/L) 106 CO2 (Enzymatic) (21 - 32 mmol/L) 28 BUN (7 - 18 mg/dL) 15 Creatinine (0.6 - 1.3 mg/dL) 1.2 Est GFR ( Amer) (mL/min) >60 Est GFR (Non-Af Amer) (mL/min) >60 Glucose (70 - 110 mg/dL) 109 Plasma Calcium (8.5 - 10.1 mg/dL) 8.4 Plasma Magnesium (1.8 - 2.4 mg/dL) 1.8 Total Bilirubin (0.0 - 1.0 mg/dL) 0.6 AST (15 - 37 U/L) 28 ALT (12 - 78 U/L) 39 Alkaline Phosphatase (46 - 116 U/L) 78 Total Protein (6.4 - 8.2 g/dL) 6.3 Albumin (3.3 - 5.0 g/dL) 3.5 Hematology WBC (4.5 - 11.5 K/uL) 6.8 RBC (4.50 - 5.90 M/uL) 4.95 Hgb (13.5 - 17.5 gm/dL) 16.6 Hct (41.0 - 53.0 %) 50.0 MCV (80 - 100 fL) 101 MCH (26 - 34 pg) 34 RDW (11.6 - 14.8 %) 13.5 Neut % (Auto) (50 - 75 %) 54.5 Lymph % (Auto) (25 - 40 %) 31.7 Garrett % (Auto) (3 - 14 %) 7.0 Eos % (Auto) (0 - 4 %) 6.4 Baso % (Auto) (0 - 2 %) 0.4 Plt Count, EDTA (150 - 400 K/uL) 97 PUBS MCHC (31 - 37 g/dL) 33 CT Scan Head IMPRESSION: 1. No acute intracranial abnormality 2. Mild cortical atrophy with minor white matter chronic ischemic changes 3. Findings discussed with Dr. Laguna at 11:16 p.m.[facility] Standard Time Dictated by: JARRELL INFANTE MD D: [facility];04/12/16 3021 Carotid Doppler and Ultrasound IMPRESSION: 1. Mild atheromatous plaque at the carotid bifurcations. 2. Mild bilateral 5-15% internal carotid artery stenoses. 3. There is a 50-99% right external carotid artery stenosis. Velocity criteria are extrapolated from diameter data as defined by the Society of Radiologists in Ultrasound Consensus Conference, Radiology 2003; 229; 340-346. Dictated by: BENJAMIN QUEVEDO MD D: [facility];04/13/16 1046 MRI Head IMPRESSION: 1. No evidence of an acute CVA 2. Mild atrophy and minor white matter chronic ischemic changes 3. Results discussed with Dr. Nino Dictated by: JARRELL INFANTE MD D: [facility];04/14/16 3808 Chest X-Ray IMPRESSION: 1. Mild chronic interstitial changes of the thorax consistent with interstitial fibrosis (e.g., UIP, DIP, sarcoid). 2. Multiple old left rib fractures. 3. Old ununited mid left clavicle fracture. Dictated by: BENJAMIN QUEVEDO MD D: [facility];04/13/16 0595 Discharge Instructions/Meds For other recommendations regarding discharge diet, activity, followup, and discharge medications please see the patient's discharge instructions. Discharge condition: Fair, improved Greater than 30 min. was spent in the patient's discharge preparation including discharge interview and physical examination, progress note, discharge instructions, and discharge summary The patient was interviewed and examined on the day of discharge. E&M Codes Discharge: Observation - All/[id number]
[2016-04-14] MEDS ORDERED: ASPIRIN ENTERIC81 M1 PO (14:57)
--- NOTE | 2016-04-14 16:16 | Provider's Discharge Care Plan ---
Problem, Goal, Plan Problem List 1. TIA (transient ischemic attack) Goals: Improve disease control, Improve function, Improved health/wellness, Prevent disease progress Instructions: Follow up as directed, Take meds as directed, Follow-up for echocardiogram as scheduled., have Dr. Neri perform fasting lipid profile if this has not been done recently. 2. Tobacco dependence Goals: Improve disease control, Prevent disease progress Instructions: Follow up as directed, stop use of chewing tobacco
--- NOTE | 2016-04-17 08:52 | ED MAR SUMMARY ---
..... Medication Administration Record [facility] [address] [place] [address] Patient: MARIO GIRARD Visit ID: [id number] 65y, M Weight: 126.0 kg Height/Length: 72 in BMI: 37.7 ALLERGIES: Possible Shellfish Start 23:27 04/12/2016 Alicia Hua R.N., Stop 01:45 04/13/2016 Alicia Hua R.N. Medication Administered: IV NS (SALINE), Dose: IV Fluids over 1 hour(s), Rate: 1000 mL/hr, Dispensed: 1000 mL bag, Site: #1 left AC. Medication Ordered: IV NS : initial bolus 1000 mL (1000 mL/hr), then none - (NOW). Given 23:04/12/2016 Alicia Hua R.N. Medication Administered: ASPIRIN [PO], Dose: 325 mg Tablets PO. Medication Ordered: Aspirin PO 325 mg (Do not crush or chew, NOW). Given :04/12/2016 Alicia Hua R.N. Medication Administered: LABETALOL [IVP], Dose: 10 mg IVP over 5 minute(s), Site: #1 left AC. Medication Ordered: Labetalol IV 10 mg (HIGH ALERT MEDICATION, NOW).
--- NOTE | 2016-04-17 08:52 | ED MED RECONCILIATION SUMMARY ---
Patient: MARIO GIRARD Medication Reconciliation Report [facility] VisitID: [id number] [address] [place] [address] 65y, M Registration Date/Time: 04/12/2016 Weight: 126 kg Height/Length: 72 in. BMI: 37.7 ALLERGIES: Possible Shellfish The patient's Home Medications are listed below: THE FOLLOWING MEDICATIONS NEED TO BE RECONCILED: Amitriptyline HCl 25mg, daily, HS Testim gel Voltaren-XR Oral The source(s) of the original Home Medication information: patient The following Medications were given to the patient in the Emergency Department: IV NS IV Fluids bolus 0, then 1000 mL/hr, administered: 04/12/2016 11:27:00 PM Aspirin [PO] PO 325 mg, administered: 04/12/2016 11:27:00 PM Labetalol [IVP] IVP 10 mg, administered: 04/12/2016 11:27:00 PM The following Medications were prescribed to the patient: None.
--- NOTE | 2016-04-17 08:52 | ED DISCHARGE INSTRUCTIONS ---
Patient: MARIO GIRARD General Instructions [facility] VisitID: [id number] [address] [place] [address] 65y, M Registration Date/Time: 04/12/2016 Acute memory loss with progressive amnesia. (Electronically signed by Keira Laguna MD 04/17/2016 8:52)
--- NOTE | 2016-04-17 08:52 | ED DISCHARGE INSTRUCTIONS ---
Patient: MARIO GIRARD General Instructions [facility] VisitID: [id number] [address] [place] [address] 65y, M Registration Date/Time: 04/12/2016 Acute memory loss with progressive amnesia. (Electronically signed by Keira Laguna MD 04/17/2016 8:52)
--- NOTE | 2016-04-17 08:52 | ED MED RECONCILIATION SUMMARY ---
Patient: MARIO GIRARD Medication Reconciliation Report [facility] VisitID: [id number] [address] [place] [address] 65y, M Registration Date/Time: 04/12/2016 Weight: 126 kg Height/Length: 72 in. BMI: 37.7 ALLERGIES: Possible Shellfish The patient's Home Medications are listed below: THE FOLLOWING MEDICATIONS NEED TO BE RECONCILED: Amitriptyline HCl 25mg, daily, HS Testim gel Voltaren-XR Oral The source(s) of the original Home Medication information: patient The following Medications were given to the patient in the Emergency Department: IV NS IV Fluids bolus 0, then 1000 mL/hr, administered: 04/12/2016 11:27:00 PM Aspirin [PO] PO 325 mg, administered: 04/12/2016 11:27:00 PM Labetalol [IVP] IVP 10 mg, administered: 04/12/2016 11:27:00 PM The following Medications were prescribed to the patient: None.
--- NOTE | 2016-04-17 08:52 | ED MAR SUMMARY ---
..... Medication Administration Record [facility] [address] [place] [address] Patient: MARIO GIRARD Visit ID: [id number] 65y, M Weight: 126.0 kg Height/Length: 72 in BMI: 37.7 ALLERGIES: Possible Shellfish Start 23:27 04/12/2016 Alicia Hua R.N., Stop 01:45 04/13/2016 Alicia Hua R.N. Medication Administered: IV NS (SALINE), Dose: IV Fluids over 1 hour(s), Rate: 1000 mL/hr, Dispensed: 1000 mL bag, Site: #1 left AC. Medication Ordered: IV NS : initial bolus 1000 mL (1000 mL/hr), then none - (NOW). Given 23:04/12/2016 Alicia Hua R.N. Medication Administered: ASPIRIN [PO], Dose: 325 mg Tablets PO. Medication Ordered: Aspirin PO 325 mg (Do not crush or chew, NOW). Given :04/12/2016 Alicia Hua R.N. Medication Administered: LABETALOL [IVP], Dose: 10 mg IVP over 5 minute(s), Site: #1 left AC. Medication Ordered: Labetalol IV 10 mg (HIGH ALERT MEDICATION, NOW).
== END 2016-04-14 18:19 | disposition home or self-care (01) ==
LOC: ED SRH 22:45 → TRANS SRH 04-13 01:02 → ACUTE2 SRH 04-13 02:24
PROVIDERS: ADMIT Emergency Medicine
DX: R41.82 Altered mental status, unspecified (principal); L03.031 Cellulitis of right toe; J18.9 Pneumonia, unspecified organism; B35.1 Tinea unguium; I10 Essential (primary) hypertension; G89.29 Other chronic pain; M25.50 Pain in unspecified joint; M54.9 Dorsalgia, unspecified
CPT/HCPCS: 29230; 29243; 29244; 29247; 29250; 29263; 85241; 90074; 90100; 90616; 90617; 91320; 92010; 92610; 92720; 93140; 94060; 95059

== ENCOUNTER 2016-04-17 12:48 | Outpatient (CLI) | payer OTHER ==
[~2016-04-17 12:48] MED LIST: AMITRIPTYLINE H25 MG PO; ASPIRIN ENTERIC81 M1 PO; CEPHALEXIN500 MG PO; COZAAR50 MG PO; DICLOFENAC SODI75 MG PO; VICODIN EQUIVAL1 TAB PO
--- NOTE | 2016-04-17 17:07 | DIAGNOSTIC IMAGING REPORT ---
REFERRING PHYSICIAN/PROVIDER: Arnav Neri MD CONSULTING [employer]PER[employer]OR [employer]: Reinier Negron MD PROCEDURE: M-mode 2D echocardiography with spectral and color flow Doppler TECHNICAL QUALITY: The study quality was technically limited. INDICATION: TIA RHYTHM DURING PROCEDURE: The patient was in normal sinus rhythm during the exam. INTERPRETATIONS: LEFT VENTRICLE: The left ventricle is normal in size. There is mild concentric left ventricular hypertrophy. The interventricular septum is measured at 1.2 cm and the left ventricular posterior wall is measured at 1.1 cm during end diastole. Left ventricular end-diastolic diameter is 5.4 cm. The left ventricular systolic function is normal without focal wall motion abnormalities with an ejection fraction of 60-65%. Assessment of diastolic parameters indicates the relaxation abnormality of the left ventricle, consistent with normal filling pressures. RIGHT VENTRICLE: The right ventricle is borderline dilated. The right ventricular systolic function is at the lower limits of normal. ATRIA: Both atria are normal in size. The interatrial septum is intact with no evidence for an atrial septal defect. MITRAL VALVE: The mitral valve is grossly normal. There is trace mitral regurgitation. AORTIC VALVE: The aortic valve is trileaflet. Aortic valve opens well. There is mild aortic regurgitation. TRICUSPID VALVE: The tricuspid valve is not well visualized, but is grossly normal. There is trace tricuspid regurgitation. Pulmonary artery pressures could not be estimated because of the lack of a measurable TR jet velocity. PULMONIC VALVE: The pulmonic valve is not well visualized. The pulmonic valve is grossly normal. There is trace or physiologic amount of pulmonic regurgitation. GREAT VESSELS: The aorta root is mildly dilated at 4.1 cm. The ascending aorta is mildly enlarged at 3.78 and centimeters. The inferior vena cava appears grossly normal. PERICARDIUM: There is no pericardial effusion. There appears to be an enlarged gallbladder or distended. Consider liver/gallbladder ultrasound for further evaluation. IMPRESSION: 1. There is mild concentric left ventricular hypertrophy with normal LV systolic function and grade 1 LV diastolic dysfunction. 2. The right ventricle is borderline dilated and the right ventricular systolic function is at the lower limits of normal. RV systolic pressure could not be estimated on this examination. 3. There is mild aortic regurgitation but otherwise no other significant valvular heart disease. 4. 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 5. There is no obvious source for cardioembolic CVA/TIA. Consider transesophageal echo if strongly suspicious for cardioembolic stroke.
== END 2016-04-17 23:00 ==
LOC: US SRH 12:48
DX: G45.9 Transient cerebral ischemic attack, unspecified (principal)